=== PATIENT | male | born 1935 | race Two or more races ===

== ENCOUNTER 2016-05-11 21:14 | Observation (INO) | payer SELFPAY ==
[~2016-05-11] VITALS: Ht 152.4 cm; Wt 73.1 kg
--- NOTE | ~2016-05-11 | HP ---
PATIENT'S NAME: ALEKSANDAR RICHEY [facility] AGE: 80 Y [address] ROOM: [place] [address] LOCATION: GPCU ADMIT DATE: 05/11/2016 History & Physical DISCHARGE DATE: FAMILY PHYSICIAN: PHYSICIAN, NO ATTENDING PHYSICIAN: SIENA FORBES DATE OF SERVICE: CHIEF COMPLAINT: Dizziness, confusion, generalized weakness, and generalized headache for the last 4 days. HISTORY OF PRESENT ILLNESS: This is an 80-year-old male, [place] speaking, coming from [place] to visit his family here. 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 The story is that for the last 4 days, the patient has been feeling this generalized headache with some confusion and lightheadedness and generalized weakness. He also has chronic osteoarthritis of both knees, worse on the left, and recently has been getting worse as well because of the cold weather here in [place]. He also complains of increasing thirst and also increased urinary frequency such as polyuria and also polydipsia. Because of all these symptoms, the patient came here for evaluation. At home, the patient takes losartan and melatonin and he has been very compliant with his medication. Last time he saw a physician was back in [place] that was 3 months ago and at that time he had a full-body workup according to the patient including EKG and ultrasound of the abdomen looking for kidneys and he was told everything was fine. He has never been told he has kidney problem in the past. He denies any other symptoms. REVIEW OF SYSTEMS: As mentioned in the history of present illness. All other systems reviewed and negative except those mentioned in the history of present illness. PAST MEDICAL HISTORY: 1. Hypertension. 2. Diabetes type 2. ALLERGIES: NO KNOWN DRUG ALLERGIES. HOME MEDICATIONS: 1. Losartan 50 mg p.o. daily. 2. Melatonin, not sure of the dose. PATIENT'S NAME: ALEKSANDAR RICHEY [facility] AGE: 80 Y [address] ROOM: [place] [address] LOCATION: GPCU ADMIT DATE: 05/11/2016 History & Physical DISCHARGE DATE: FAMILY PHYSICIAN: PHYSICIAN, NO ATTENDING PHYSICIAN: SIENA FORBES SOCIAL HISTORY: The patient denies any alcohol or cigarette or illegal drug use. PAST SURGICAL HISTORY: The patient denies any. FAMILY HISTORY: Both parents are from old age. Father had diabetes type 2. Mother had a stroke at advanced age. PHYSICAL EXAMINATION: VITAL SIGNS: At the time of my dictation; temperature 98, blood pressure 165/80, heart rate 80, respirations 14, and saturation 100% on room air. GENERAL APPEARANCE: Alert and oriented x3. In no acute distress. Answers question appropriately. No slurred speech. No facial droop. HEENT: Pupils equally round and reactive to light. Extraocular muscles intact. Anicteric sclerae. Nasal turbinates are normal bilaterally. Moist oral mucosa. NECK: No JVD. No carotid bruits. CARDIOVASCULAR: Regular rate and rhythm. No murmur. No rubs. No gallops. RESPIRATORY: Clear. ABDOMEN: Obese, soft, nontender, and nondistended. Normal bowel sounds. No hepatosplenomegaly. EXTREMITIES: No edema in upper or lower extremities. NEUROLOGIC: Grossly nonfocal except that he has a right eye blindness, this is chronic. SKIN: No ulcer. No rash. No cyanosis. MUSCULOSKELETAL: He has bilateral knee pain with difficulty with range of motion due to chronic osteoarthritis. Otherwise, unremarkable. No knee effusion. No knee inflammation. No knee erythema. The knees are not warm to touch. LABORATORY DATA: ABG on room air showed pH of 7.42, pCO2 of 39, pO2 of 77, bicarb 25.3, and saturation 95%. Lactic acid 1.8. Troponin less than 0.04. White blood cells 6.8, hemoglobin 14, hematocrit 39.9, MCV 87.1, and platelets 192. Glucose 407, BUN 20, creatinine 1.6, sodium 137, potassium 3.9, chloride 103, CO2 of 24, calcium 8.2, total protein 7.3, albumin 3.8, AST 11, ALT 21, alkaline phosphatase 90, total bilirubin 0.5, anion gap 13.9, globulin 3.5, GFR 42, INR 1.0, PTT 25, CK- MB less than 0.5, CRP 1.52, free T4 of 0.8, TSH 10.1, procalcitonin less than 0.05, and acetone negative. IMAGING STUDIES: PATIENT'S NAME: ALEKSANDAR ROSSI [facility] AGE: 80 Y [address] ROOM: [id number] [place], [place] [address] [facility] ADMIT DATE: 05/11/2016 History & Physical DISCHARGE DATE: FAMILY PHYSICIAN: PHYSICIAN, JOSH ATTENDING PHYSICIAN: SIENA FORBES Chest x-ray on admission, official report is pending. Based on my review seems unremarkable. EKG on admission showed evidence of left ventricular hypertrophy with secondary repolarization change. Heart rate 76, QTc 399, VA 156, and QRS 86. CT of the brain without contrast on admission showed no acute hemorrhage or definite acute infarct, this is preliminary. Official report is pending in the morning. ASSESSMENT AND PLAN: 1. Uncontrolled hypertension, currently with hypertensive urgency. Right now is urgency because the patient is asymptomatic at the moment. The patient has been running about 180 to 200 when he got in the ED and symptom has been going on for 4 days, therefore by guideline we should not lower more than 25% in the first 24 hours. Therefore, his goal should be around 160 in the next 24 hours. The plan will be giving amlodipine 10 mg p.o. daily in the morning and also putting IV hydralazine p.r.n. and IV labetalol p.r.n., for systolic blood pressure more than 180 with labetalol and more than 170 with hydralazine. Upon discharge, the patient should be taking amlodipine and maybe IVAN inhibitors or ARB depending if his acute kidney injury is really acute kidney injury or chronic kidney disease or acute kidney injury on chronic kidney disease. Further plan depending on clinical course. 2. Regarding his hyperglycemia from uncontrolled diabetes, definitely we should stop the metformin given that he has lactic acid elevation in the setting of acute kidney injury, elevated creatinine with using metformin at home can cause lactic acidosis from metformin. Stop the metformin and put him on insulin sliding scale with aspart a.c. and h.s. mild dose. I will give him diabetic diet. Further plan depending on clinical course. Depending his progression of acute kidney injury or chronic kidney disease or acute kidney injury on chronic kidney disease upon discharge, we can determine if he will go back on metformin or he will go on one of the sulfonylurea groups. Further plan depends on clinical course. I will check A1c as well. 3. Regarding his acute kidney injury or chronic kidney disease or acute kidney injury on chronic kidney disease, I do not have any baseline to compare. The patient has never been told he has acute kidney injury or chronic kidney disease. According to the patient, 3 months ago when he was in [place], his primary care did ultrasound of the abdomen looking for kidneys and he was told everything was normal. So, I suppose this could be acute kidney injury. However, I am not sure because I do not have any baseline to compare. The plan will be hydration with normal saline at 50 mL/h, gentle hydration, and see how he responds. This is a fluid challenge test. I will also be checking a urine protein and creatinine PATIENT'S NAME: JACQUELYN KAMINSKI [facility] AGE: 80 Y [address] ROOM: [place] [address] [facility] ADMIT DATE: 05/11/2016 History & Physical DISCHARGE DATE: FAMILY PHYSICIAN: PHYSICIAN, NO ATTENDING PHYSICIAN: SIENA FORBES ratio, looking for the extent of the kidney damage. I will be checking a urine sodium and urine creatinine to calculate the FENa to determine the origin of the acute kidney injury. Monitor urine output closely. I will check urinalysis and also urine sediments and urine electrolytes. Kidney ultrasound will not be performed unless urinalysis shows something remarkable. 4. Regarding his chronic bilateral osteoarthritis of both knees, I will get x-ray to confirm that. I will give him Voltaren gel 1% of 4-gram to apply 3 times a day to both knees for the pain relief of an osteoarthritis. 5. Deep venous thrombosis prophylaxis. He will be on heparin subcu 3 times a day. Time spent in care on the day of admission 40 minutes including chart review, interviewing and examining the patient, addressing all the questions and concerns that the patient had, and going over the plan of care with the patient. SIENA FORBES MD CC/modl /[id number] D: 143 T: 748 HISTORY & PHYSICAL
--- NOTE | ~2016-05-11 | DS ---
PATIENT'S NAME: JACQUELYN KAMINSKI [facility] AGE: 80 Y [address] ROOM: [id number] [place], [place] [address] LOCATION: GPCU ADMIT DATE: 05/11/2016 Discharge Summary DISCHARGE DATE: 05/14/2016 FAMILY PHYSICIAN: , JOSH ATTENDING PHYSICIAN: Gilles Ojeda PRINCIPAL DIAGNOSES: 1. Hyperglycemia. 2. Type 2 diabetes, uncontrolled. 3. Hypertension. HOSPITAL COURSE: This is an 80-year-old male, who is here visiting from [place], who presented to the emergency room initially with hyperglycemia and dehydration and was admitted for management of this. The patient was started on insulin upon admissions and insulin regimens were titrated to optimize the patient's need. The patient in addition also was started on metformin and glipizide during the hospitalization as well. The patient's A1c was noted to be 11.8. The patient is known to be a diabetic but not clear what medicines that he was supposed to be on. Today, the patient's blood sugars are very well controlled. The patient was seen and evaluated by our chemical educator team as well. Their recommendation for him right now would be combine oral medications with insulin; however, due to the patient's and "I am not living here" it is difficult for the patient to be able to pay for insulin. At this point, we will discharge the patient on glipizide 2.5 mg daily and have him follow up with a physician in [place]. I have had a lengthy discussion with daughter and the patient's and stressed the need for the patient to be on some type of a basal insulin going forward. Due to the patient's labile kidney function, I will hold off using metformin at this point, especially since close followup at this point is not guaranteed. PHYSICAL EXAMINATION: GENERAL: Today, the patient is awake, alert, and oriented x3, tolerating p.o. intake very well. CHEST: Clear to auscultation bilaterally. HEART: S1 and S2. Regular rate and rhythm. ABDOMEN: Soft, nontender, nondistended. Positive bowel sounds. EXTREMITIES: Without edema. DISPOSITION: Home with family. Less than 30 minutes were spent in discharge planning. DEBBIE PINEDA MD PATIENT'S NAME: JACQUELYN KAMINSKI [facility] AGE: 80 Y [address] ROOM: [place] [address] [facility] ADMIT DATE: 05/11/2016 Discharge Summary DISCHARGE DATE: 05/14/2016 FAMILY PHYSICIAN: JOSH MOSES ATTENDING PHYSICIAN: Gilles Ojeda/anjali /[id number] d: 05/15/16 0454 t: 05/16/16 1823, DISCHARGE SUMMARY
--- NOTE | ~2016-05-11 | ER ---
PATIENT'S NAME: ALEKSANDAR RICHEY [facility] AGE: 80 Y [address] ROOM: [place] [address] LOCATION: GPCU ADMIT DATE: 05/11/2016 ER/Outpatient Report DISCHARGE DATE: FAMILY PHYSICIAN: PHYSICIAN, NO ATTENDING PHYSICIAN: SIENA FORBES CHIEF COMPLAINT: Elevated blood pressure, elevated glucose. HISTORY OF PRESENT ILLNESS: The patient has been having headaches over the last few days and that is an indication his blood pressure has been high in the past. He has also been peeing a lot and felt like his blood sugar has been high and thus he has been doubling his metformin dose. He does take losartan. He has a headache in the back of the head. His [id number] medicines for headache have not been working. His blood pressure is unusually high according to family. They have not actually taken it. The family notes that he has been very unsteady on his feet and been acting dizzy today as well. He is very hard of hearing, his baseline. All history was obtained with the use of a video u.s. representative. He also notes arthritis in the knees. PAST MEDICAL HISTORY: Documented on the record and reviewed by me. SOCIAL HISTORY: Documented on the record and reviewed by me. MEDICATIONS: Documented on the record and reviewed by me. ALLERGIES: DOCUMENTED ON THE RECORD AND REVIEWED BY ME. REVIEW OF SYSTEMS: All systems were reviewed and negative except as noted in the HPI. PHYSICAL EXAMINATION: VITAL SIGNS: Blood pressure 183/98, pulse is 80, respiratory rate is 16, temperature 99.5, SpO2 is 95% on room air. Pain is rated 8/10. GENERAL: Age-appropriate male in no obvious pain or distress, resting comfortably on the exam table. NEURO: The patient is awake. He is alert. He is interactive. His speech PATIENT'S NAME: ALEKSANDAR RICHEY [facility] AGE: 80 Y [address] ROOM: [place] [address] LOCATION: GPCU ADMIT DATE: 05/11/2016 ER/Outpatient Report DISCHARGE DATE: FAMILY PHYSICIAN: PHYSICIAN, NO ATTENDING PHYSICIAN: SIENA FORBES appears to be normal. He is hard of hearing. He does have difficulty assimilating information, but is able to follow commands appropriately. It is unclear how well the commands are translated for him. He has no significant dysmetria or dysarthria. He is able to follow commands in all extremities. No pronator drift and no obvious asymmetry on exam. The patient was able to perform past pointing with no difficulty. HEENT: Normocephalic, atraumatic. Eyes are PERRL. Oropharynx is clear. NECK: Supple. Trachea is midline. CHEST: Heart is regular rate and rhythm with no murmurs. LUNGS: Clear to auscultation bilateral with no rhonchi, wheezes, or rales. ABDOMEN: Soft, nontender, and nondistended. No rebound or guarding. BACK: Nontender to palpation throughout. No CVA tenderness. EXTREMITIES: Warm and well perfused. No appreciated peripheral edema. LABORATORY DATA AND X-RAYS: EKG is sinus rhythm, ventricular rate of 75 with normal intervals and axis. No signs of acute ischemia other than inversion of the T-waves in the lateral leads. Head CT is grossly unremarkable per Radiology. CBC is unremarkable. Coagulation within normal properties. CMS is notable for an elevated glucose of 407 and a creatinine of 1.6, GFR of 42. Troponin below threshold. CRP is 1.5. Free T4 is 0.8, TSH is 10.1. Procalcitonin is below threshold. Serum ketones are negative. Blood pH 7.42, pCO2 is 39, PO2 is 477, bicarb is 25.3, FiO2 is room air, lactate is 1.8. IMPRESSION: 1. Possible hypertensive urgency. 2. Hypothyroidism. 3. Poorly controlled diabetes without anion gap acidosis. EMERGENCY DEPARTMENT COURSE: The patient was seen and evaluated. I did not administer any insulins. His blood pressure began to improve on his own. With his elevated creatinine and concerns for dizziness and dysfunction, I was concerned about possible hypertensive urgency. Thinking that his renal function is probably at his baseline, however, I have no comparisons available. For these reasons and possible organ dysfunction in the setting of marked hypertension, we will admit him to the Hospitalist Service for further evaluation and treatment of the above etiologies. He has no evidence of cardiac injury. Dr. Forbes will admit the patient for further evaluation and treatment. JAIME KWONG MD PATIENT'S NAME: JACQUELYN KAMINSKI [facility] AGE: 80 Y [address] ROOM: [place] [address] LOCATION: [facility] ADMIT DATE: 05/11/2016 ER/Outpatient Report DISCHARGE DATE: FAMILY PHYSICIAN: JOSH MOSES ATTENDING PHYSICIAN: SIENA FORBES/anjali /[id number] d: 05/13/16 0446 t: 05/23/16 0934, OUTPATIENT REPORT
[2016-05-11 22:29] LABS: BASOPHIL # 0.1 K/uL (0.0-0.2); BASOPHIL % 0.7 %; EOSINOPHIL # 0.2 K/uL (0.0-0.5); EOSINOPHIL % 2.8 %; HEMATOCRIT 39.9 % (33.0-50.0); IMMATURE GRANULOCYTE % 0.1 %; LYMPHOCYTE % 29.5 %; MCH 30.6 pg (27.0-34.0); MCHC 35.1 gm/dL (32.0-36.5); MCV 87.1 fl (83.0-98.0); MONOCYTE # 0.6 K/uL (0.0-1.0); MONOCYTE % 8.4 %; MPV 11.3 fl (9.4-12.4); NEUTROPHIL % 58.5 %; NRBC % 0 /100WBC (0-0.00); PLATELET COUNT 192 K/uL (150-450); RBC 4.58 M/uL (3.50-5.50); RDW-CV 12.8 % (11.9-14.6); WBC 6.8 K/uL (4.0-11.0)
[2016-05-11 22:40] LABS: PROTIME 9.9 SECONDS (9.6-11.1); PTT 25 SECONDS (25-32)
[2016-05-11 22:53] LABS: ALBUMIN 3.8 gm/dL (3.5-5.0); ALK PHOS 90 IU/L (33-138); ALT 21 IU/L (12-78); ANION GAP 13.9 (10.0-19.0); AST 11 IU/L (10-40); BLOOD UREA NITROGEN 20 mg/dL (6-24); CALCIUM 8.2 mg/dL (8.5-10.5); CHLORIDE 103 mMol/L (96-110); CO2 24 mMol/L (22-32); CREATININE 1.6 mg/dL (0.6-1.3); ESTIMATED GFR (MDRD EQUATION) 42; POTASSIUM 3.9 mMol/L (3.7-5.1); SODIUM 137 mMol/L (135-145); TOTAL BILIRUBIN 0.5 mg/dL (0.0-1.5); TOTAL PROTEIN 7.3 g/dL (6.0-8.4)
[2016-05-11 23:20] LABS: BICARBONATE 25.3 mmol/L (18.0-23.0); LACTATE 1.8 mEq/L (0.50-1.60); PCO2 39 mmHg (35-45); PO2 77 mmHg (80-90)
[2016-05-12 00:27] LABS: BILIRUBIN URINE NEGATIVE (NEGATIVE); BLOOD URINE NEGATIVE /UL (NEGATIVE); COLOR URINE YELLOW (YELLOW); GLUCOSE URINE 1000 mg/dL (NEGATIVE); KETONE URINE NEGATIVE (NEGATIVE); LEUKOCYTES URINE NEGATIVE /UL (NEGATIVE); NITRITE URINE NEGATIVE (NEGATIVE); PROTEIN URINE NEGATIVE (NEGATIVE); SPEC GRAVITY URINE 1.015 (1.003-1.035); TURBIDITY URINE CLEAR (CLEAR); UROBILINOGEN URINE NORMAL (NORMAL)
[2016-05-12] MEDS ORDERED: COZAAR50 MG PO (02:15)
[2016-05-12] MEDS ORDERED: GLUCOPHAGE500 MG PO (02:17)
[2016-05-12] MEDS ORDERED: [UNRECOGNIZED DRUG - OTHER] PO (02:21)
--- NOTE | 2016-05-12 04:56 | NUR ---
Pt a/o, pleasant. amharic speaking only-includes family. anastasia at bedside. pt is from [place] visiting family. has been here roughly 3weeks. started to have increased uop and increased thirst over the last week. SBP elevated per family. Came to ed was 180-190's sbp-arrival to floor 150's. c/o pain in bilat knees from arthritis but only when standing. pretty unstead-def use gb and fww. uses cane at home. volteran gel ordered for his knees but pt declined. stated on synthroid. is DMII. blood sugar was 400 in ED. last checked was 352-ed gave him 12units of Mod SSI novolog. urine glucose was 1000 dr barker made aware-no new orders. doesn't like ice in his water. NS at 75 to RFA. ARLEEN- cr was slightly elevated. Plan: hydrate, would benefit from diabetic/nutrition consult,
[2016-05-12 05:50] LABS: ANION GAP 10.6 (10.0-19.0); CALCIUM 8.3 mg/dL (8.5-10.5); CREATININE 1.2 mg/dL (0.6-1.3); POTASSIUM 3.6 mMol/L (3.7-5.1)
[2016-05-12] MEDS ORDERED: [UNRECOGNIZED DRUG - OTHER] PO (09:45)
[2016-05-12] MEDS ORDERED: VOLTAREN 1% GE100 GM TOP (09:46)
--- NOTE | 2016-05-12 18:37 | NUR ---
Significant Event: A/O x3, cooperative with cares. VSS, SBPs 140-160s, HRs 60-70s, on room air. No c/o pain. Bilateral knee injections with kenalog by Dr. Cronin today; bandaids in place. PT/OT ordered; ambulated in feng with therapy. Up in room with assist of family. Diabetic ed consult in AM. Follow up:
[2016-05-13 04:18] LABS: BASOPHIL % 0.1 %; HEMATOCRIT 38.7 % (33.0-50.0); HEMOGLOBIN 13.7 g/dL (11.0-16.0); IMMATURE GRANULOCYTE % 0.3 %; LYMPHOCYTE # 0.9 K/uL (0.8-4.0); LYMPHOCYTE % 9.8 %; MCH 30.4 pg (27.0-34.0); MCHC 35.4 gm/dL (32.0-36.5); MONOCYTE # 0.3 K/uL (0.0-1.0); MONOCYTE % 2.7 %; MPV 11.3 fl (9.4-12.4); NEUTROPHIL # (ANC) 7.9 K/uL (1.4-9.0); NEUTROPHIL % 87.1 %; NRBC % 0 /100WBC (0-0.00); PLATELET COUNT 225 K/uL (150-450); RDW-CV 12.6 % (11.9-14.6); WBC 9.1 K/uL (4.0-11.0)
[2016-05-13 04:33] LABS: ANION GAP 17.1 (10.0-19.0); CALCIUM 8.8 mg/dL (8.5-10.5); CREATININE 1.4 mg/dL (0.6-1.3); POTASSIUM 4.1 mMol/L (3.7-5.1)
--- NOTE | 2016-05-13 04:40 | NUR ---
Pt a/o x4. vss on ra, afebrile. sbp 120-150's. fsbs 478 at hs- gave 10 units of novolog. fsbs 2300 417- gave another 5 units of novolog and 10 units of levemir, rechecked at 0230 fsbs 299- gave another 6 units of novolg. Daughter informed me at 0330 that patient ate 2 helpings of mashed potatoes, a hamburger including the bun, bread, and 2 glasses of orange juice for dinner. no other changes Plan: DM ED to see today.
--- NOTE | 2016-05-13 13:45 | NUR ---
Diabetes consult: Patient education provided to the patient and his two daughters this afternoon with the use of the [employer] [place] sign language interpreter. The patient reports having diabetes for 20 years and taking "one pill" while in [place] for his diabetes. Current A1C is 11.8%. Patient is being given Metformin, glipizide and Levemir to control blood sugars. The patient has no health insurance and has a plane ticket to return to [place] on Friday. Discussed with the family that the patient needs to continue insulin upon discharged. The family is refusing to consider the use of insulin upon discharge. Daughter's report their mother has poor vision and cannot assist the patient in taking insulin. The patient reports being blind in his right eye and daughters do not feel he would be willing or able to dose insulin. Daughters indicate that the patient was cleared by his physician to travel to the [place] prior to arriving. Patient does has a creat of 1.5 and GFR of 49 and may not be the best candidate for oral pills. Discussed the above concerns with Dr. Pittman, and he is aware. Will wait to evaluate renal function in the a.m. The family was educated on the potential complications that can result from uncontrolled blood sugars and the the issue regarding oral pills being filtered through the kidneys. Family was instructed to have the patient follow up with his physician as soon as he returns to [place]. Education was provided on medications, sick day management, hypo/hyperglycemic prevention and treatment as well as nutrition. Diabetes booklet provided. Family was provided with samples of testing supplies and instructed to purchase an otc Prime Reli on glucometer at [facility] to save on cost. Family denies further questions. Will continue to follow.
--- NOTE | 2016-05-13 15:14 | NUR ---
Introduced self and role of care management to jamie daughter. She states that patient is staying with her while he is visiting from [place]. She states that he is able to do all his own ADL's. She states that he uses a cane at times. She is wanting to get him a walker. I did explain where she could but walkers. I did give her a [place] financial assitance form. She plans on returning home on discharge. She denies any needs at this time. [employer] Intrepreter was used for this conversation. Will continue to follow.
--- NOTE | 2016-05-13 17:18 | NUR ---
Significant Event: A/O x3, cooperative with cares. VSS, SBPs 120s, HRs 70s, on room air. No c/o pain. Bandaids removed from injection sites to bilateral knees. Diabetic ed visited with patient et family. Up in room with assist of family; ambulate feng x2 with physical therapy Follow up: ? d/c tomorrow
[2016-05-14 03:38] LABS: ALBUMIN 3.4 gm/dL (3.5-5.0); ANION GAP 13.2 (10.0-19.0); CALCIUM 8.4 mg/dL (8.5-10.5); CREATININE 1.3 mg/dL (0.6-1.3)
[2016-05-14 03:43] LABS: POTASSIUM 4.2 mMol/L (3.7-5.1)
--- NOTE | 2016-05-14 05:04 | NUR ---
Significant Event: Patient is alert/oriented x3. Vital signs stable. On room air. HS blood sugar was below 200. Denies any pain. Renal function slightly improved this AM. Follow up: D/C today?
--- NOTE | 2016-05-14 11:40 | NUR ---
Diabetes consult: Patient is being discharged to home today. Talked with patient's daughter, who indicates that she has no questions or concerns regarding discharge. The patient was encouraged to follow up with his family physician upon returning to [place], so renal function can be monitored.
[2016-05-14] MEDS ORDERED: NORVASC10 MG PO (11:44)
[2016-05-14] MEDS ORDERED: GLUCOTROL5 MG PO (11:46)
[2016-05-14] MEDS ORDERED: LEVOTHROID (SY50 MCG PO (11:51)
== END 2016-05-14 14:00 | disposition disaster alternative care site (69) ==
LOC: GMED 21:14 → GPCU 23:40
PROVIDERS: Emergency Medicine; Internal Medicine; ADMIT Internal Medicine
PROC: 3E0U3NZ Introduction of Analgesics, Hypnotics, Sedatives into Joints, Percutaneous Approach (ICD-10-PCS; principal; 2016-05-12)
PROC: 3E0U33Z Introduction of Anti-inflammatory into Joints, Percutaneous Approach (ICD-10-PCS; principal; 2016-05-12)
DX: E11.65 Type 2 diabetes mellitus with hyperglycemia (principal); I10 Essential (primary) hypertension; M17.0 Bilateral primary osteoarthritis of knee; H54.41 Blindness, right eye, normal vision left eye; E03.9 Hypothyroidism, unspecified; Z23 Encounter for immunization; Z79.899 Other long term (current) drug therapy
CPT/HCPCS: G0008; G0009; G0378; J1644; J3301; J7030